=== PATIENT | female | born 1960 | race Caucasian/White ===

== ENCOUNTER → 2016-08-03 | Outpatient (CLI) | payer OTHER ==
[~2016-08-03] MED LIST: ERGO500044 PO; HYDR-4246 PO; IOHEXOL 180 MG/ML 20ml INJECTION ONE; LEVO150T4 PO; LIDOCAINE 1% (10mg/ml) 5ml VIAL ONE; LOSA50TA52 PO; LOVA10TA2 PO; MELO15TA12 PO; MethylPREDNISolone ACETATE 40mg/1ml ONE; ONDA4TAB4 PO
--- NOTE | 2016-08-03 16:02 | DI ---
Indication:ITS.REASON: M54.17 Radiculopathy, lumbosacral region Procedure:EPIDURAL INJ.SPINE W FLUO CATH LUMBAR EPIDURAL INJECTION: The patient has low back and radicular pain. The patient has had a previous epidural that provided excellent relief. The details of the procedure, including the benefits, risks, and alternatives were explained to the patient. All of their questions were answered. They stated that they understood and wished to proceed. Informed consent was then obtained. A pre-procedural timeout was performed to confirm the correct patient and procedure. Utilizing aseptic technique, local lidocaine anesthetic, and fluoroscopic guidance throughout, a 22-gauge spinal needle was directed into the lumbar epidural space via an interlaminar approach at the L4-5 level. Contrast was injected to assure proper positioning of the needle tip. A fluoroscopic image was then taken and archived. Subsequently, 120 mg Depo-Medrol was injected into the epidural space. The patient tolerated the procedure well. IMPRESSION: Successful lumbar epidural steroid injection. Fluoroscopy dose: 12.48 mGy (Cumulative air kerma) Adan Siu RPA/HALEY performed this under my personal supervision. .
== END ==
LOC: IMA 14:07
PROVIDERS: ATTEND Internal Medicine
DX: M54.5 Low back pain (principal); M54.17 Radiculopathy, lumbosacral region
CPT/HCPCS: 62323